=== PATIENT | female | born 1985 | race Caucasian/White ===

== ENCOUNTER → 2017-10-25 | Outpatient (CLI) | payer BC ==
[2017-10-27 06:15] LABS: INSULIN-LIKE GROWTH FACTOR I 144 ng/mL (73-243)
== END ==
LOC: LAB 13:25
PROVIDERS: ATTEND Physician Assistant
DX: E11.9 Type 2 diabetes mellitus without complications (principal)
CPT/HCPCS: 36415; 82960; 83519; 84305; 84681